=== PATIENT | female | born 1990 | race Two or more races ===

== ENCOUNTER 2021-09-05 01:30 | Emergency (ER) | payer OTHER ==
[~2021-09-05] VITALS: Ht 157.5 cm; Wt 52.2 kg
[2021-09-05] MEDS ORDERED: AMOX-CLAV 875-1 EACH PO (04:06)
[2021-09-05] MEDS ORDERED: KETO10TA2 PO (04:06)
== END 2021-09-05 04:29 ==
LOC: ER 01:30
DX: S81.802A Unspecified open wound, left lower leg, initial encounter (principal); W18.49XA Other slipping, tripping and stumbling without falling, initial encounter; Y92.89 Other specified places as the place of occurrence of the external cause